=== PATIENT | female | born 1965 | race Caucasian/White ===

== ENCOUNTER 2021-04-14 11:19 | Outpatient (CLI) | payer MEDICARE, MEDICAID, SELFPAY ==
[2021-04-14 12:24] LABS: Alanine Aminotransferase 36 U/L (4-35); Albumin Level 4.5 g/dL (3.5-5.1); Alkaline Phosphatase 110 U/L (38-126); Anion Gap 7 mmol/L (8-16); Aspartate Amino Transferase 28 U/L (14-36); Bilirubin,Total 0.4 mg/dL (0.2-1.3); Blood Urea Nitrogen 18 mg/dL (7-17); Calcium 9.6 mg/dL (8.4-10.2); Carbon Dioxide 30 mmol/L (22-30); Chloride 100 mmol/L (98-107); Cholesterol 122 mg/dL (0-200); Estimated Glomerular Filt Rate 58; Glucose 138 mg/dL (65-110); HDL Direct 44 mg/dL; Potassium 3.7 mmol/L (3.4-5.0); Sodium 137 mmol/L (137-145); Triglycerides 103 mg/dL (<150)
[2021-04-14 12:25] LABS: Creatinine Urine 179.1 mg/dL
[2021-04-14 12:30] LABS: Microalbumin Urine Random 127.2 mg/L (0-16.7)
[2021-04-14 12:35] LABS: LDL Cholesterol Direct 55 mg/dL
[2021-04-14 12:52] LABS: Thyroid Stimulating Hormone 0.787 uIU/mL (0.465-4.680)
[2021-04-18 16:02] LABS: C-Peptide 0.63 ng/mL (0.80-3.85)
== END 2021-04-14 11:20 | disposition home or self-care (01) ==
LOC: ANHLAB 11:24
PROVIDERS: PCP Emergency Medicine; Visit Provider Internal Medicine Endocrinology, Diabetes & Metabolism
DX: E11.65 Type 2 diabetes mellitus with hyperglycemia (principal); I10 Essential (primary) hypertension; R80.9 Proteinuria, unspecified; Z46.81 Encounter for fitting and adjustment of insulin pump; Z71.3 Dietary counseling and surveillance; Z79.4 Long term (current) use of insulin
CPT/HCPCS: 36415; 80053; 80061; 82043; 84443; 84681

== ENCOUNTER 2021-05-31 09:45 | Outpatient (CLI) | payer MEDICARE, MEDICAID, SELFPAY ==
--- NOTE | ~2021-05-31 | NM_ITS ---
EXAM: NM gastric emptying study DATE: 05/31/2021 14:52 INDICATION: Abdominal distention (gaseous). TECHNIQUE: A gastric emptying study was performed using the methodology of Patricia CORNELIUS, et al. J Nucl Med 2007; 48:568-572. The patient was given a meal consisting of 2 scrambled eggs labeled with 0.990 mCi Tc-99m sulfur colloid, 2 slices of toast, two packages of jam, and approximately 120 mL of water . Simultaneous anterior and posterior 1-min images of the abdomen were obtained with the patient supi ne at multiple time points over a total period of 4 hours. The geometric mean of anterior and posteri or views was determined, and the percentage retention was calculated for each time point. COMPARISON: CT abdomen and pelvis 03/02/2015 FINDINGS: Gastric retention of the radiotracer-labeled meal was 95%, 44%, and 6% at the 1-hour, 2-ho ur, and 4-hour time points, respectively. With this technique, apparent rapid gastric emptying is sug gested by <30% gastric retention at 1 hour. Delayed gastric emptying is defined by gastric retention of >90% at 1 hour, >60% retention at 2 hours, or >10% retention at 4 hours. IMPRESSION: 1. Delayed gastric emptying. Reviewed, dictated and finalized at location A. ADMINISTRATIVE ASSISTANT
== END 2021-05-31 09:46 | disposition home or self-care (01) ==
LOC: ANHIMG 09:46
PROVIDERS: PCP Emergency Medicine; Visit Provider Nurse Practitioner Family
DX: E11.65 Type 2 diabetes mellitus with hyperglycemia (principal); R11.0 Nausea; R14.0 Abdominal distension (gaseous); K30 Functional dyspepsia
CPT/HCPCS: 78264; A9541

== ENCOUNTER 2021-09-27 15:00 | Outpatient (CLI) | payer MEDICARE, MEDICAID, SELFPAY ==
--- NOTE | ~2021-09-27 | MR_ITS ---
EXAMINATION: MR shoulder LT wo con DATE: 09/27/2021 15:55 INDICATION: Possible lifting injury 2 months ago. Diffuse frequent shoulder pain with limited range o f motion. TECHNIQUE: Magnetic resonance imaging (MRI) of the left shoulder was performed without intravenous co ntrast. Sequences included axial PD-weighted FS FSE, coronal oblique PD-weighted FS FSE and T2-weight ed FS FSE, and sagittal oblique T2-weighted FS FSE and T1-weighted FSE. COMPARISON: None. FINDINGS: Coracoacromial arch: Flat acromial undersurface (type I), with slight lateral downsloping and tip enthesopathy that contac ts the superior cuff. Moderate AC joint hypertrophy that indents the superior aspect of the cuff. Rotator cuff: 4 mm x 8 mm partial-thickness intrasubstance type tear in the critical zone of the supraspinatus tend on, with background tendinopathy. Infraspinatus, teres minor, and subscapularis muscles are intact. Biceps tendon and glenoid labrum: Long and short heads of the biceps tendons are intact. Mild degenerative change in the glenoid labrum , without focal tear. Fluid: Minimal subacromial subdeltoid fluid. Greater than expected volume of fluid surrounding the long head of biceps tendon in the bicipital groove. Bones/cartilage: Bone marrow signal is benign and homogenous. Mild glenohumeral joint space narrowing. IMPRESSION: 1. Focal partial thickness supraspinous tear at the critical zone in a background of tendinopathy. 2. Long head of biceps tenosynovitis. 3. Moderate osseous outlet compromise with mild subacromial subdeltoid bursitis. Reviewed, dictated and finalized at location K. IMPRESSION: 1. Focal partial thickness supraspinous tear at the critical zone in a backgrou nd of tendinopathy. 2. Long head of biceps tenosynovitis. 3. Moderate osseous outlet compromise with mild subacromial subdeltoid bursitis .
== END 2021-09-27 15:01 | disposition home or self-care (01) ==
PROVIDERS: PCP Emergency Medicine; Visit Provider Emergency Medicine
DX: M24.812 Other specific joint derangements of left shoulder, not elsewhere classified (principal)
CPT/HCPCS: 73221

== ENCOUNTER 2022-05-18 14:37 | Outpatient (CLI) | payer MEDICARE, MEDICAID, SELFPAY ==
[2022-05-18 16:36] LABS: Hematocrit 43.5 % (37.0-47.0); Hemoglobin 13.9 g/dL (12.0-15.0); Mean Corpuscular Hemoglobin 27.1 pg (26-34); Mean Platelet Volume 10.3 fl (7.4-10.4); Platelet Count Result 280 k/mm3 (150-375); Red Blood Count 5.12 M/mm3 (4.2-5.4); Red Cell Distribution Width 14.3 % (11.5-14.5); White Blood Count 8.6 K/mm3 (4.5-10.0)
[2022-05-18 18:02] LABS: Creatinine Urine 73.9 mg/dL
[2022-05-18 18:06] LABS: MALB Creatinine Ratio 146.7 mg/g (0-30); Microalbumin Urine Random 108.4 mg/L (0-16.7)
[2022-05-18 18:32] LABS: Vitamin D 25 Hydroxy 15.1 ng/mL
[2022-05-18 18:35] LABS: Alanine Aminotransferase 43 U/L (6-35); Albumin Level 4.3 g/dL (3.5-5.1); Alkaline Phosphatase 117 U/L (38-126); Aspartate Amino Transferase 39 U/L (14-36); Bilirubin,Total 0.6 mg/dL (0.2-1.3); Blood Urea Nitrogen 12 mg/dL (7-17); Calcium 9.5 mg/dL (8.4-10.2); Carbon Dioxide 30 mmol/L (22-30); Cholesterol 235 mg/dL (0-200); Estimated Glomerular Filt Rate > 60; Glucose 117 mg/dL (65-110); HDL Direct 49 mg/dL; Potassium 3.5 mmol/L (3.4-5.0); Sodium 141 mmol/L (137-145); Triglycerides 156 mg/dL (<150)
[2022-05-18 18:42] LABS: Anion Gap 11 mmol/L (8-16); Chloride 100 mmol/L (98-107)
[2022-05-18 18:43] LABS: LDL Cholesterol Direct 137 mg/dL
[2022-05-18 19:03] LABS: Thyroid Stimulating Hormone 0.367 uIU/mL (0.465-4.680)
[2022-05-18 19:07] LABS: Free T4 Free Thyroxine 1.47 ng/mL (0.78-2.19)
== END 2022-05-18 14:38 | disposition home or self-care (01) ==
LOC: ANHWCLAB 14:39
PROVIDERS: PCP Emergency Medicine; Visit Provider Nurse Practitioner Family
DX: D50.9 Iron deficiency anemia, unspecified (principal); E11.69 Type 2 diabetes mellitus with other specified complication; E55.9 Vitamin D deficiency, unspecified; R80.9 Proteinuria, unspecified
CPT/HCPCS: 36415; 80053; 80061; 82043; 82306; 82607; 84439; 84443; 85027

== ENCOUNTER 2022-12-04 10:05 | Outpatient (CLI) | payer MEDICARE, MEDICAID, SELFPAY ==
[2022-12-04 18:26] LABS: Microalbumin Urine Random 73.5 mg/L (0-16.7)
[2022-12-04 18:30] LABS: Alanine Aminotransferase 32 U/L (6-35); Albumin Level 4.6 g/dL (3.5-5.1); Alkaline Phosphatase 106 U/L (38-126); Anion Gap 7 mmol/L (8-16); Aspartate Amino Transferase 58 U/L (14-36); Bilirubin,Total 0.4 mg/dL (0.2-1.3); Blood Urea Nitrogen 13 mg/dL (7-17); Calcium 9.8 mg/dL (8.4-10.2); Carbon Dioxide 30 mmol/L (22-30); Chloride 105 mmol/L (98-107); Cholesterol 130 mg/dL (0-200); Estimated Glomerular Filt Rate > 60; Glucose 157 mg/dL (65-110); HDL Direct 41 mg/dL; Potassium 4.3 mmol/L (3.4-5.0); Sodium 142 mmol/L (137-145); Triglycerides 168 mg/dL (<150)
[2022-12-04 18:40] LABS: Creatinine Urine 63.5 mg/dL; MALB Creatinine Ratio 115.7 mg/g (0-30)
[2022-12-04 18:42] LABS: LDL Cholesterol Direct 57 mg/dL
[2022-12-04 20:28] LABS: Free T4 Free Thyroxine 1.36 ng/mL (0.78-2.19); Vitamin D 25 Hydroxy 29.1 ng/mL
== END 2022-12-04 10:06 | disposition home or self-care (01) ==
LOC: ANHWCLAB 10:07
PROVIDERS: PCP Emergency Medicine; Visit Provider Nurse Practitioner Family
DX: D50.9 Iron deficiency anemia, unspecified (principal); E11.65 Type 2 diabetes mellitus with hyperglycemia; E55.9 Vitamin D deficiency, unspecified; G62.9 Polyneuropathy, unspecified; R79.89 Other specified abnormal findings of blood chemistry; R80.9 Proteinuria, unspecified; E11.9 Type 2 diabetes mellitus without complications
CPT/HCPCS: 36415; 80053; 80061; 82043; 82306; 82607; 84439; 84443

== ENCOUNTER 2023-01-05 14:27 | Outpatient (CLI) | payer MEDICARE, MEDICAID, SELFPAY ==
--- NOTE | ~2023-01-05 | US_ITS ---
EXAMINATION: US arterial ankle brachial ind DATE: 01/05/2023 15:07 INDICATION: Peripheral vascular disease with claudication TECHNIQUE: Segmental pressures and plethysmographic and Doppler waveforms of the brachial and lower e xtremity arteries were obtained. COMPARISON: None. FINDINGS: Right and left brachial artery pressures of 145 mm Hg and 161 mm Hg, respectively, are concordant (no rmal difference <= 30 mmHg). The right ankle-brachial index (BREE) is 1.25 (normal >= 0.9-1.0). The right great toe-brachial index (TBI) is 0.32 (normal >= 0.65). Arterial Doppler waveforms are triphasic with brisk systolic upstroke s at both right posterior tibial and dorsalis pedis arteries. The left BREE is 0.99. The left TBI is 0.61. Arterial Doppler waveforms are biphasic with brisk systol ic upstrokes at both left posterior tibial and dorsalis pedis arteries. IMPRESSION: 1. Arterial occlusive disease with normal bilateral ABIs but moderately decreased right and mildly de creased left TBIs. Reviewed, dictated and finalized at location A. IMPRESSION: 1. Arterial occlusive disease with normal bilateral ABIs but moderately decreas ed right and mildly decreased left TBIs.
== END 2023-01-05 14:28 | disposition home or self-care (01) ==
PROVIDERS: PCP Emergency Medicine; Visit Provider Nurse Practitioner Family
DX: I73.9 Peripheral vascular disease, unspecified (principal); G62.9 Polyneuropathy, unspecified
CPT/HCPCS: 93922

== ENCOUNTER 2023-06-28 09:44 | Outpatient (CLI) | payer MEDICARE, MEDICAID, SELFPAY ==
[2023-06-28 11:04] LABS: Hematocrit 41.8 % (37.0-47.0); Hemoglobin 12.9 g/dL (12.0-15.0); Mean Corpuscular HGB Conc 30.9 g/dl (32-36); Mean Corpuscular Hemoglobin 26.8 pg (26-34); Mean Corpuscular Volume 86.7 fl (80-100); Mean Platelet Volume 10.8 fl (7.4-10.4); Platelet Count Result 239 k/mm3 (150-375); Red Blood Count 4.82 M/mm3 (4.2-5.4); Red Cell Distribution Width 14.1 % (11.5-14.5); White Blood Count 6.8 K/mm3 (4.5-10.0)
[2023-06-28 11:09] LABS: Appearance Urine Clear (Clear); Bilirubin Urine Negative (Negative); Blood Urine Negative (Negative); Color Urine Yellow (Yellow); Glucose Urine UA 3+ mg/dL (Negative); Ketones Urine Negative (Negative); Leukocyte Esterase Ur Negative LEU/UL (Negative); Nitrate Urine Negative (Negative); Protein Urine Negative (Negative); Specific Grav Ur 1.026 (1.001-1.035); Urobilinogen Urine 0.2 mg/dL (<2.0); pH Urine 5.5 (5.0-9.0)
[2023-06-28 11:14] LABS: Alanine Aminotransferase 39 U/L (6-35); Albumin Level 4.4 g/dL (3.5-5.1); Alkaline Phosphatase 110 U/L (38-126); Anion Gap 6 mmol/L (8-16); Aspartate Amino Transferase 30 U/L (14-36); Bilirubin,Total 0.6 mg/dL (0.2-1.3); Blood Urea Nitrogen 11 mg/dL (7-17); Calcium 9.5 mg/dL (8.4-10.2); Carbon Dioxide 28 mmol/L (22-30); Chloride 106 mmol/L (98-107); Estimated Glomerular Filt Rate > 60; Glucose 229 mg/dL (65-110); Potassium 3.5 mmol/L (3.4-5.0); Sodium 140 mmol/L (137-145)
[2023-06-28 11:22] LABS: Add Urine Microscopic? NO
== END 2023-06-28 09:45 | disposition home or self-care (01) ==
LOC: ANHLAB 09:47
PROVIDERS: PCP Emergency Medicine; Visit Provider Nurse Practitioner Family
DX: J45.909 Unspecified asthma, uncomplicated (principal); E11.69 Type 2 diabetes mellitus with other specified complication; R35.0 Frequency of micturition
CPT/HCPCS: 36415; 80053; 81003; 85027

== ENCOUNTER 2024-09-12 09:25 | Outpatient (CLI) | payer MEDICARE, MEDICAID, SELFPAY ==
[2024-09-12 10:11] LABS: Alanine Aminotransferase 35 U/L (6-35); Albumin Level 4.6 g/dL (3.5-5.1); Alkaline Phosphatase 96 U/L (38-126); Anion Gap 9 mmol/L (4-12); Aspartate Amino Transferase 36 U/L (14-36); Bilirubin,Total 0.5 mg/dL (0.2-1.3); Blood Urea Nitrogen 17 mg/dL (7-17); Calcium 9.5 mg/dL (8.4-10.2); Carbon Dioxide 28 mmol/L (22-30); Chloride 105 mmol/L (98-107); Cholesterol 206 mg/dL (0-200); Estimated Glomerular Filt Rate 58; Glucose 124 mg/dL (65-110); HDL Direct 52 mg/dL; Sodium 142 mmol/L (137-145); Triglycerides 155 mg/dL (<150)
[2024-09-12 10:22] LABS: LDL Cholesterol Direct 114 mg/dL
[2024-09-12 10:27] LABS: Creatinine Urine 78.7 mg/dL
[2024-09-12 10:32] LABS: MALB Creatinine Ratio 61.6 mg/g (0-30); Microalbumin Urine Random 48.5 mg/L (0-16.7)
[2024-09-12 10:37] LABS: Free T4 Free Thyroxine 1.24 ng/dL (0.78-2.19); Vitamin D 25 Hydroxy 20.3 ng/mL
[2024-09-12 10:41] LABS: Thyroid Stimulating Hormone 0.703 uIU/mL (0.465-4.680)
== END 2024-09-12 09:26 | disposition home or self-care (01) ==
PROVIDERS: PCP Emergency Medicine; Visit Provider Nurse Practitioner Family
DX: E11.65 Type 2 diabetes mellitus with hyperglycemia (principal); E55.9 Vitamin D deficiency, unspecified; E78.5 Hyperlipidemia, unspecified; E78.00 Pure hypercholesterolemia, unspecified; I10 Essential (primary) hypertension
CPT/HCPCS: 36415; 80053; 80061; 82043; 82306; 82607; 84439; 84443